=== PATIENT | male | born 2000 | race Asian ===

== ENCOUNTER 2020-09-26 19:53 | Inpatient (IN) | payer OTHER ==
[~2020-09-26] VITALS: Ht 175.3 cm; Wt 60.9 kg
[2020-09-26] MEDS ORDERED: SERT-158 PO (20:09)
[2020-09-26 20:25] LABS: BASOPHILS % (AUTO) 0.7 % (0.0-2.0); EOSINOPHILS % (AUTO) 0.7 % (1.0-6.0); HEMATOCRIT 44.3 % (41-53); HEMOGLOBIN 14.6 g/dL (13.5-17.5); LYMPHOCYTES # (AUTO) 1.1 K/uL (1.0-4.8); LYMPHOCYTES % (AUTO) 15.3 % (22.0-44.0); MEAN CORPUSCULAR HEMOGLOBIN 29.1 pg (26.0-34.0); MEAN CORPUSCULAR VOLUME 88 fL (80-100); MONOCYTES # (AUTO) 0.5 K/uL (0.1-1.0); MONOCYTES % (AUTO) 6.7 % (2.0-9.0); NEUTROPHILS # (AUTO) 5.6 K/uL (1.8-7.7); NEUTROPHILS % (AUTO) 76.6 % (40.0-70.0); PLATELET COUNT (AUTO) 256 K/uL (150-450); RED BLOOD CELL COUNT(AUTO) 5.02 MIL/uL (4.50-5.90)
[2020-09-26 20:38] LABS: COVID AG,FIA SOURCE NASOPHARYNGEAL
[2020-09-26 20:39] LABS: ANION GAP 9 mmol/L (8-16); CALCIUM, TOTAL 9.2 mg/dL (8.8-10.5); CARBON DIOXIDE 27 mmol/L (22-29); CHLORIDE 102 mmol/L (98-107); CREATININE 1.11 mg/dL (0.60-1.30); GLOMERULAR FILTR. RATE CALC > 60 mL/min (>60); GLUCOSE,RANDOM 90 mg/dL (70-110); POTASSIUM 3.7 mmol/L (3.5-5.1); SODIUM SERUM 138 mmol/L (136-145); UREA NITROGEN, BLOOD 13 mg/dL (7-18)
[2020-09-26 20:46] LABS: ACETAMINOPHEN < 2 mcg/mL (10-30); ALANINE AMINOTRANSFERASE 26 U/L (12-78); ALBUMIN 4.7 g/dL (3.4-5.0); ALKALINE PHOSPHATASE 67 U/L (46-116); ASPARTATE AMINOTRANSFERASE 13 U/L (15-37); BILIRUBIN,TOTAL 0.6 mg/dL (0.1-1.0); TOTAL PROTEIN, SERUM 8.3 g/dL (6.4-8.2)
[2020-09-26 20:49] LABS: AMPHET/METH SCREEN,URINE NEGATIVE (NEGATIVE); BARBITURATE SCREEN, URINE NEGATIVE (NEGATIVE); BENZODIAZEPINES SCREEN,URINE NEGATIVE (NEGATIVE); CANNABINOID SCREEN,URINE NEGATIVE (NEGATIVE); COCAINE SCREEN,URINE NEGATIVE (NEGATIVE); METHADONE SCREEN, URINE NEGATIVE (NEGATIVE); OPIATE SCREEN,URINE NEGATIVE (NEGATIVE)
[2020-09-26 21:02] LABS: SALICYLATE < 2.8 mg/dL (2.8-20.0)
[2020-09-26 21:04] LABS: PHENCYCLIDINE SCREEN,URINE NEGATIVE (NEGATIVE)
[2020-09-26] MEDS ORDERED: ZOLPIDEM TARTRATE 10 MG TABLET PO PRN (21:15)
[2020-09-26] MEDS ORDERED: LORazepam 2 MG TABLET PO PRN (21:15)
[2020-09-26] MEDS ORDERED: HALOPERIDOL 5 MG TABLET PO PRN (21:15)
[2020-09-27 04:10] VITALS: BP 135/94
[2020-09-27 06:30] LABS: CHOL/HDL RATIO 4.4 (4.2-7.3)
[2020-09-27 08:20] VITALS: BP 121/82
[2020-09-27 16:16] VITALS: BP 116/71
[2020-09-27] MEDS: SERTRALINE HCL 50 MG TABLET PO SCH (16:50)
[2020-09-27] MEDS ORDERED: IBUPROFEN 400 MG TABLET PO PRN (17:00)
[2020-09-27] MEDS ORDERED: CloNIDine HCL 0.1 MG TABLET PO PRN (17:00)
[2020-09-27] MEDS ORDERED: ONDANSETRON HCL 4 MG TABLET PO PRN (17:00)
[2020-09-27] MEDS ORDERED: PETROLATUM,WHITE 28 GM JELLY TP PRN (17:00)
[2020-09-27] MEDS ORDERED: MAGNESIUM HYDROXIDE SUSPENSION 30 ML UDCUP PO PRN (17:00)
[2020-09-27] MEDS ORDERED: MAG HYDROX/AL HYDROX/SIMETH ES 30 ML SUSPENSION UDCUP PO PRN (17:00)
[2020-09-27] MEDS ORDERED: DOCUSATE SODIUM 100 MG CAPSULE PO PRN (17:00)
[2020-09-27] MEDS ORDERED: ALBUTEROL SULFATE HFA 90 MCG/PUFF 8 GM INHALER IH PRN (17:00)
[2020-09-27] MEDS ORDERED: ACETAMINOPHEN 325 MG TABLET PO PRN (17:00)
[2020-09-27] MEDS ORDERED: NICOTINE 14 MG/24 HOUR PATCH TD PRN (17:00)
[2020-09-27] MEDS ORDERED: LOPERAMIDE HCL 2 MG CAPSULE PO PRN (17:00)
[2020-09-27] MEDS ORDERED: GuaiFENesin/D-METHORPHAN [SUGAR-FREE] 200-20MG/10 ML SYRUP UDCUP PO PRN (17:00)
[2020-09-28 02:34] VITALS: BP 119/80
[2020-09-28] MEDS: SERTRALINE HCL 50 MG TABLET PO SCH ×2 (09:00→16:22)
[2020-09-28 10:02] VITALS: BP 121/81
[2020-09-28 16:00] VITALS: BP 131/86
[2020-09-29] MEDS: SERTRALINE HCL 50 MG TABLET PO SCH (08:26)
[2020-09-29 09:03] VITALS: BP 141/86
== END 2020-09-29 13:45 | disposition home or self-care (01) | DRG 885 ==
LOC: EMS 19:56 → 3EI 21:05
PROVIDERS: ADMIT Psychiatry & Neurology Child & Adolescent Psychiatry; ATTEND Psychiatry & Neurology Child & Adolescent Psychiatry
DX: F33.2 Major depressive disorder, recurrent severe without psychotic features (principal); R45.851 Suicidal ideations; E44.0 Moderate protein-calorie malnutrition; Z68.1 Body mass index [BMI] 19.9 or less, adult; Z20.822 Contact with and (suspected) exposure to COVID-19; T50.902A Poisoning by unspecified drugs, medicaments and biological substances, intentional self-harm, initial encounter; Y92.89 Other specified places as the place of occurrence of the external cause; E78.5 Hyperlipidemia, unspecified; F41.9 Anxiety disorder, unspecified
CPT/HCPCS: 83735; 87426; 93005; 99285; G0480; G0481